=== PATIENT | male | born 1945 | race Caucasian/White ===

== ENCOUNTER 2022-09-22 14:15 | Inpatient (IN) ==
[2022-09-22] MEDS ORDERED: Atropine 0.1 MG/ML 10 ml SYR (1 mg) ONE ×2 (14:28→15:05)
[2022-09-22] MEDS ORDERED: Lactated Ringers 1000 ml BAG 1,000 ML IV ONE (14:30)
[2022-09-22] MEDS ORDERED: Atropine 1 MG/ML INJ 1 ML VIAL IV PUSH PRN (14:30)
[2022-09-22] MEDS ORDERED: Atropine 0.1 MG/ML 10 ml SYR (1 mg) IV PUSH ONE (14:30)
[2022-09-22] MEDS ORDERED: Heparin - STEMI 5,000 UNITS/ML 1 ml VIAL IV ONE (14:33)
[2022-09-22] MEDS ORDERED: Midazolam 5 mg/5 ml VIAL 1 mg/ml 5 ml VIAL (5 mg) ONE (14:40)
[2022-09-22] MEDS ORDERED: Heparin 2 UNITS/ML 1000 mls 3,000 ML IV ONE (14:40)
[2022-09-22] MEDS ORDERED: fentaNYL 100 mcg/2 ml 50 MCG/ML VIAL ONE (14:40)
[2022-09-22] MEDS ORDERED: Heparin 1,000 UNIT/ML 10 ml (10,000 UNITS) CATHLAB/DIALYSIS ONE (14:40)
[2022-09-22] MEDS ORDERED: nitroGLYCERIN DRIP 25,000 MCG/250 ML BTL ONE (14:41)
[2022-09-22] MEDS ORDERED: niCARdipine 0.1MG/ML IVPREMIX 20 MG/200 ML BAG IV ONE (14:41)
[2022-09-22] MEDS ORDERED: Iohexol 350 (CONTRAST) 100 ML PAK IV ONE ×2 (14:41→15:50)
[2022-09-22] MEDS ORDERED: Iohexol 350 (CONTRAST) 200 ML MDV IV ONE (14:41)
[2022-09-22] MEDS ORDERED: Lidocaine 1% MPF 5 ML VIAL ONE (14:41)
[2022-09-22 14:42] LABS: ABS Eosinophils 0.2 10^3/ul (0-0.6); ABS Lymphocytes 3.8 10^3/ul (1.0-4.8); ABS Monocytes 0.6 10^3/ul (0-0.8); ABS Neutrophils 3.9 10^3/ul (1.5-7.7); Eosinophil % 2.8 %; Hematocrit 40 % (42-52); Hemoglobin 13.6 g/dL (14.0-18.0); Lymphocyte % 44.1 %; Mean Corpuscular Hemoglobin 33 pg (27-31); Mean Corpuscular Hgb Conc 34 g/dL (31-36); Mean Corpuscular Volume 95 fL (80-94); Mean Platelet Volume 7.3 fL (7.4-10.4); Platelet Count 269 10^3/uL (150-450); Red Blood Count 4.19 10^6 /uL (4.18-5.48); Red Cell Distribution Width 14 % (10-15); White Blood Count 8.5 10^3/uL (3.5-10.8)
[2022-09-22 14:49] LABS: INR 1.19 (0.88-1.18)
[2022-09-22 14:56] LABS: Albumin 3.8 g/dL (3.2-5.2); Calcium 9.5 mg/dL (8.6-10.3); Total Bilirubin 0.5 mg/dL (0.2-1.0)
[2022-09-22 15:02] LABS: Albumin/Globulin Ratio 1.1 (1-3); Creatinine, Serum 1.12 mg/dL (0.67-1.17); Globulin 3.6 g/dL (2-4); Total Protein 7.4 g/dL (6.4-8.9); eGFR CKD-EPI 68.1 (>60)
[2022-09-22] MEDS ORDERED: Ondansetron 4 mg VIAL 2 MG/ML 2 ml VIAL ONE (15:27)
[2022-09-22] MEDS ORDERED: Eptifibatide IV (Load dose) 2 MG/ML 10 ml VIAL ONE ×2 (15:40→15:49)
[2022-09-22] MEDS: Venlafaxine 25 mg TAB (NF) PO SCH (21:07)
[2022-09-22] MEDS ORDERED: Calcium Carb (TUMS) 500 mg CHEW TAB PO PRN (23:31)
[2022-09-23 04:44] LABS: ABS Lymphocytes 1.7 10^3/ul (1.0-4.8); ABS Monocytes 0.9 10^3/ul (0-0.8); Eosinophil % 0.3 %; Hematocrit 35 % (42-52); Hemoglobin 12.4 g/dL (14.0-18.0); Lymphocyte % 17.9 %; Mean Corpuscular Hemoglobin 33 pg (27-31); Mean Corpuscular Hgb Conc 36 g/dL (31-36); Mean Corpuscular Volume 93 fL (80-94); Mean Platelet Volume 7.7 fL (7.4-10.4); Platelet Count 226 10^3/uL (150-450); Red Blood Count 3.76 10^6 /uL (4.18-5.48); Red Cell Distribution Width 14 % (10-15); White Blood Count 9.7 10^3/uL (3.5-10.8)
[2022-09-23 04:56] LABS: Albumin 3.5 g/dL (3.2-5.2); Albumin/Globulin Ratio 1.3 (1-3); Calcium 9.3 mg/dL (8.6-10.3); Creatinine, Serum 0.98 mg/dL (0.67-1.17); Globulin 2.6 g/dL (2-4); HDL Cholesterol 34.8 mg/dL; Potassium 4.2 mmol/L (3.5-5.0); Total Bilirubin 0.7 mg/dL (0.2-1.0); Total Protein 6.1 g/dL (6.4-8.9); eGFR CKD-EPI 79.9 (>60)
[2022-09-23] MEDS: Venlafaxine 25 mg TAB (NF) PO SCH ×2 (09:34→19:59)
[2022-09-24] MEDS: Venlafaxine 25 mg TAB (NF) PO SCH (07:51)
[2022-09-24 11:02] VITALS: BP 151/105
== END 2022-09-24 13:30 | disposition home or self-care (01) | DRG 247 ==
LOC: ED 14:15 → CHICATH 14:54 → ICU 14:55
PROVIDERS: ADMIT Internal Medicine